=== PATIENT | male | born 1970 | race Caucasian/White ===

== ENCOUNTER 2017-11-23 09:05 | Inpatient (IN) | payer BC, MEDICARE ==
[~2017-11-23] VITALS: Ht 165.1 cm; Wt 55.5 kg
[2017-11-23] MEDS ORDERED: DEXTROSE 50%, 50ML SYRINGE ONE (09:28)
[2017-11-23] MEDS ORDERED: D5%-0.45% NACL 1,000 ML IV SCH (09:30)
[2017-11-23] MEDS ORDERED: PLEASE ENTER HEIGHT AND WEIGHT MC SCH (09:30)
[2017-11-23] MEDS ORDERED: DEXTROSE 50%, 50ML SYRINGE IVPush ONE (09:30)
[2017-11-23 09:58] LABS: BASOPHILS # (AUTO) 0.05 x10^3/uL (0-0.1); BASOPHILS % (AUTO) 0 % (0-1); EOSINOPHILS # (AUTO) 0.04 x10^3/uL (0-0.4); EOSINOPHILS % (AUTO) 0 % (1-7); LYMPHOCYTES # (AUTO) 2.64 x10^3/uL (1-3.4); LYMPHOCYTES % (AUTO) 18 % (22-44); MD NO; MEAN CORPUSCULAR HEMOGLOBIN 33.8 pg (27.5-34.5); MEAN CORPUSCULAR HGB CONC 33.4 g/dL (33.2-36.2); MEAN CORPUSCULAR VOLUME 101.2 fL (81-97); MEAN PLATELET VOLUME 8.2 fL (7.4-10.4); MONOCYTES # (AUTO) 0.69 x10^3/uL (0.2-0.8); MONOCYTES % (AUTO) 5 % (2-9); NEUTROPHILS % (AUTO) 77 % (42-75); PLATELET COUNT 333 x10^3/uL (130-400); RED BLOOD COUNT 3.77 x10^6/uL (4.38-5.82); RED CELL DISTRIBUTION WIDTH 14.5 % (9.4-14.8)
[2017-11-23] MEDS ORDERED: SODIUM CHLORIDE 0.9% 1,000ML IVBOLUS ONE ×2 (10:00→11:30)
[2017-11-23 10:09] LABS: ALANINE AMINOTRANSFERASE 149 U/L (12-78); ALBUMIN 3.3 g/dL (3.4-5.0); ANION GAP 5 mmol/L (5-15); CALCIUM 8.2 mg/dL (8.5-10.1); CHLORIDE 107 mmol/L (98-107); CREATININE 0.54 mg/dL (0.7-1.3)
[2017-11-23 10:12] LABS: ALKALINE PHOSPHATASE 279 U/L (45-117); BILIRUBIN,TOTAL 0.2 mg/dL (0.2-1.0); TOTAL PROTEIN 7.1 g/dL (6.4-8.2)
[2017-11-23] MEDS ORDERED: INSU500V SQ-INSULIN (10:28)
[2017-11-23] MEDS ORDERED: CEFTRIAXONE PMX 1GM/50ML 50 ML IV ONE (11:00)
[2017-11-23] MEDS ORDERED: OMNIPAQUE 350 MG/ML, 100ML BOTTLE ONE (11:11)
[2017-11-23] MEDS ORDERED: CEFTRIAXONE PMX 1GM/50ML 50 ML ONE (11:56)
[2017-11-23 12:07] LABS: MICROSCOPIC AUTO
[2017-11-23 12:08] LABS: CULTURE INDICATED? YES
[2017-11-23 12:19] LABS: AMPHETAMINE SCREEN, URINE Positive (Negative); BARBITURATE SCREEN, URINE Negative (Negative); BENZODIAZEPINE SCREEN, URINE Negative (Negative); CANNABINOID SCREEN, URINE Positive (Negative); COCAINE SCREEN, URINE Negative (Negative); METHADONE SCREEN, URINE Negative (Negative); OPIATE SCREEN, URINE Negative (Negative)
[2017-11-23] MEDS ORDERED: VERAPAMIL 2.5 MG/ML, 2ML ONE (12:29)
[2017-11-23] MEDS ORDERED: VERAPAMIL 2.5 MG/ML, 2ML IVPush ONE (12:30)
[2017-11-23] MEDS ORDERED: DEXTROSE 50%, 50ML SYRINGE IVPush PRN (14:30)
[2017-11-23] MEDS ORDERED: GLUCAGON 1 MG IM PRN (14:30)
[2017-11-23] MEDS ORDERED: DEXTROSE 4 GM TAB.CHEW PO PRN (14:30)
[2017-11-23 14:32] LABS: TROPONIN I < 0.015 ng/mL (0.000-0.045)
[2017-11-23] MEDS ORDERED: INSU100I11 SQ (14:34)
[2017-11-23] MEDS ORDERED: INSU200I4 SQ-INSULIN (14:37)
[2017-11-23 14:49] LABS: FOLATE LEVEL > 20.0 ng/mL (3.1-17.5)
[2017-11-23] MEDS ORDERED: NICOTINE 14MG/24 HR PATCH.TD24 TD ONE (15:00)
[2017-11-23] MEDS ORDERED: POLYETHYLENE GLYCOL 17 GM PACKET PO PRN (15:00)
[2017-11-23] MEDS ORDERED: BISACODYL 10 MG SUPP PR PRN (15:00)
[2017-11-23] MEDS: INSULIN LISPRO 100 UNITS/ML, PEN SQ-INSULIN SCH ×2 (16:00→21:13)
[2017-11-23 16:04] LABS: HEMOGLOBIN A1C 13.6 % (4.2-6.3)
[2017-11-23] MEDS: THIAMINE 100MG TABLET PO SCH (16:19)
[2017-11-23] MEDS: D5%-0.45NACL+KCL 20MEQ 1,000 ML IV SCH ×2 (16:19→22:29)
[2017-11-23] MEDS: ACETAMINOPHEN 325 MG TABLET PO PRN (16:19)
[2017-11-23] MEDS: POTASSIUM CHLORIDE 20 MEQ TAB.ER.PRT PO SCH (16:20)
[2017-11-23] MEDS: FOLIC ACID 1 MG TABLET PO SCH (16:21)
[2017-11-23] MEDS ORDERED: MAGNESIUM SULFATE PMX 2GM/50ML 50 ML IV ONE (16:30)
[2017-11-23 16:42] VITALS: BP 117/78
[2017-11-23] MEDS: VERAPAMIL 2.5 MG/ML, 2ML IVPush PRN ×2 (16:54→19:45)
[2017-11-23 19:18] VITALS: BP 109/82
[2017-11-23 19:43] VITALS: BP 125/90
[2017-11-23] MEDS: ENOXAPARIN 60 MG/0.6 ML SQ SCH (19:45)
[2017-11-23] MEDS: SODIUM CHLORIDE FLUSH 10ML SYR IVF SCH (21:13)
[2017-11-24 00:25] VITALS: BP 110/85
[2017-11-24] MEDS: ACETAMINOPHEN 325 MG TABLET PO PRN ×2 (00:40→20:53)
[2017-11-24 05:44] LABS: BASOPHILS # (AUTO) 0.03 x10^3/uL (0-0.1); BASOPHILS % (AUTO) 0 % (0-1); EOSINOPHILS # (AUTO) 0.05 x10^3/uL (0-0.4); EOSINOPHILS % (AUTO) 1 % (1-7); LYMPHOCYTES # (AUTO) 2.61 x10^3/uL (1-3.4); LYMPHOCYTES % (AUTO) 32 % (22-44); MD NO; MEAN CORPUSCULAR HEMOGLOBIN 34.3 pg (27.5-34.5); MEAN CORPUSCULAR HGB CONC 33.8 g/dL (33.2-36.2); MEAN CORPUSCULAR VOLUME 101.5 fL (81-97); MEAN PLATELET VOLUME 8.8 fL (7.4-10.4); MONOCYTES # (AUTO) 0.44 x10^3/uL (0.2-0.8); MONOCYTES % (AUTO) 5 % (2-9); NEUTROPHILS # (AUTO) 4.93 x10^3/uL (1.8-6.8); NEUTROPHILS % (AUTO) 61 % (42-75); PLATELET COUNT 270 x10^3/uL (130-400); RED BLOOD COUNT 3.45 x10^6/uL (4.38-5.82); RED CELL DISTRIBUTION WIDTH 14.3 % (9.4-14.8)
[2017-11-24 05:55] LABS: CHLORIDE 106 mmol/L (98-107)
[2017-11-24 06:08] LABS: ALANINE AMINOTRANSFERASE 107 U/L (12-78); ALBUMIN 2.5 g/dL (3.4-5.0); ALKALINE PHOSPHATASE 228 U/L (45-117); ANION GAP 7 mmol/L (5-15); BILIRUBIN,TOTAL 0.2 mg/dL (0.2-1.0); CALCIUM 7.8 mg/dL (8.5-10.1); CHOL/HDL RATIO 1.2; CHOLESTEROL, TOTAL 110 mg/dL (140-239); CREATININE 0.53 mg/dL (0.7-1.3); HDL CHOL % 81 % (26-37); HDL CHOLESTEROL (DIRECT) 89 mg/dL (40-60); LDL CHOLESTEROL,CALCULATED 10 mg/dL (54-169); LDL/HDL RATIO 0.1 (0.5-3.0); TOTAL PROTEIN 5.6 g/dL (6.4-8.2); TRIGLYCERIDES 54 mg/dL (50-200); VLDL CHOLESTEROL 11 mg/dL (0-25)
[2017-11-24] MEDS: ENOXAPARIN 60 MG/0.6 ML SQ SCH ×2 (06:28→17:24)
[2017-11-24] MEDS: D5%-0.45NACL+KCL 20MEQ 1,000 ML IV SCH (06:28)
[2017-11-24] MEDS: INSULIN LISPRO 100 UNITS/ML, PEN SQ-INSULIN SCH ×4 (07:33→20:38)
[2017-11-24 07:59] VITALS: BP 130/87
[2017-11-24] MEDS: POTASSIUM CHLORIDE 20 MEQ TAB.ER.PRT PO SCH (08:07)
[2017-11-24] MEDS: SENNA/DOCUSATE TABLET PO SCH (08:08)
[2017-11-24] MEDS: THIAMINE 100MG TABLET PO SCH (08:08)
[2017-11-24] MEDS: SODIUM CHLORIDE FLUSH 10ML SYR IVF SCH ×2 (08:08→20:38)
[2017-11-24] MEDS: FOLIC ACID 1 MG TABLET PO SCH (08:08)
[2017-11-24] MEDS ORDERED: MAGNESIUM SULFATE PMX 2GM/50ML 50 ML IV ONE (09:00)
[2017-11-24] MEDS: CEFTRIAXONE 1,000 MG in SODIUM CHLORIDE 0.9% 50 ML IV SCH (11:42)
[2017-11-24] MEDS ORDERED: CEFTRIAXONE PMX 1GM/50ML 50 ML IV SCH (12:00)
[2017-11-24] MEDS ORDERED: ERGOCALCIFEROL 50,000 UNIT CAPSULE PO SCH (13:00)
[2017-11-24 13:05] VITALS: BP 122/81
[2017-11-24 14:44] VITALS: BP 123/73
[2017-11-24] MEDS: PANCRELIPASE 24,000 CAPSULE.DR PO SCH (17:24)
[2017-11-24 18:49] VITALS: BP 126/81
[2017-11-24] MEDS: INSULIN GLARGINE 100 UNITS/ML, PEN SQ-INSULIN SCH (20:53)
[2017-11-25 01:29] VITALS: BP 130/86
[2017-11-25 04:46] LABS: BASOPHILS # (AUTO) 0.07 x10^3/uL (0-0.1); BASOPHILS % (AUTO) 1 % (0-1); EOSINOPHILS # (AUTO) 0.07 x10^3/uL (0-0.4); EOSINOPHILS % (AUTO) 1 % (1-7); LYMPHOCYTES # (AUTO) 2.76 x10^3/uL (1-3.4); LYMPHOCYTES % (AUTO) 34 % (22-44); MD NO; MEAN CORPUSCULAR HEMOGLOBIN 33.9 pg (27.5-34.5); MEAN CORPUSCULAR HGB CONC 33.2 g/dL (33.2-36.2); MEAN CORPUSCULAR VOLUME 102.1 fL (81-97); MEAN PLATELET VOLUME 8.6 fL (7.4-10.4); MONOCYTES % (AUTO) 6 % (2-9); NEUTROPHILS # (AUTO) 4.79 x10^3/uL (1.8-6.8); NEUTROPHILS % (AUTO) 58 % (42-75); PLATELET COUNT 260 x10^3/uL (130-400); RED BLOOD COUNT 3.78 x10^6/uL (4.38-5.82); RED CELL DISTRIBUTION WIDTH 14.4 % (9.4-14.8)
[2017-11-25 04:57] LABS: ALBUMIN 2.7 g/dL (3.4-5.0); CHLORIDE 109 mmol/L (98-107)
[2017-11-25 05:03] LABS: ALANINE AMINOTRANSFERASE 110 U/L (12-78); ALKALINE PHOSPHATASE 218 U/L (45-117); ANION GAP 6 mmol/L (5-15); BILIRUBIN,TOTAL 0.3 mg/dL (0.2-1.0); CREATININE 0.54 mg/dL (0.7-1.3); TOTAL PROTEIN 5.9 g/dL (6.4-8.2)
[2017-11-25] MEDS: ACETAMINOPHEN 325 MG TABLET PO PRN (05:28)
[2017-11-25] MEDS: ENOXAPARIN 60 MG/0.6 ML SQ SCH ×2 (05:28→16:55)
[2017-11-25 05:56] LABS: CLOSTRIDIUM DIFFICILE ANTIGEN NEGATIVE; CLOSTRIDIUM DIFFICILE TOXIN NEGATIVE (Negative)
[2017-11-25] MEDS: INSULIN LISPRO 100 UNITS/ML, PEN SQ-INSULIN SCH ×4 (07:00→21:00)
[2017-11-25 07:16] VITALS: BP 147/86
[2017-11-25] MEDS: THIAMINE 100MG TABLET PO SCH (08:11)
[2017-11-25] MEDS: SODIUM CHLORIDE FLUSH 10ML SYR IVF SCH ×2 (08:11→21:00)
[2017-11-25] MEDS: PANCRELIPASE 24,000 CAPSULE.DR PO SCH ×3 (08:11→16:55)
[2017-11-25] MEDS: SENNA/DOCUSATE TABLET PO SCH (08:11)
[2017-11-25] MEDS: FOLIC ACID 1 MG TABLET PO SCH (08:11)
[2017-11-25] MEDS: CEFTRIAXONE 1,000 MG in SODIUM CHLORIDE 0.9% 50 ML IV SCH (11:56)
[2017-11-25 14:21] VITALS: BP 151/86
[2017-11-25] MEDS: LORazepam 2 MG/ML, 1ML IVPush PRN (17:10)
[2017-11-25] MEDS ORDERED: NICOTINE 21 MG/24 HR PATCH.TD24 ONE (17:23)
[2017-11-25] MEDS ORDERED: LOPERAMIDE 1 MG/5 ML, 10ML UDC ONE (17:23)
[2017-11-25] MEDS: LOPERAMIDE 1 MG/5 ML, 10ML UDC PO SCH ×2 (17:26→20:57)
[2017-11-25 18:28] VITALS: BP 132/83
[2017-11-25 18:50] VITALS: BP 136/80
[2017-11-25] MEDS: SULFAMETH./TRIMETHOPRIM DS 800MG/160MG TABLET PO SCH (20:57)
[2017-11-25] MEDS: INSULIN GLARGINE 100 UNITS/ML, PEN SQ-INSULIN SCH (20:59)
[2017-11-26 01:18] VITALS: BP 130/82
[2017-11-26] MEDS: LOPERAMIDE 1 MG/5 ML, 10ML UDC PO SCH ×3 (01:30→07:48)
[2017-11-26 04:55] LABS: BASOPHILS # (AUTO) 0.05 x10^3/uL (0-0.1); BASOPHILS % (AUTO) 1 % (0-1); EOSINOPHILS # (AUTO) 0.06 x10^3/uL (0-0.4); EOSINOPHILS % (AUTO) 1 % (1-7); LYMPHOCYTES # (AUTO) 3.36 x10^3/uL (1-3.4); LYMPHOCYTES % (AUTO) 38 % (22-44); MD NO; MEAN CORPUSCULAR HEMOGLOBIN 34.1 pg (27.5-34.5); MEAN CORPUSCULAR HGB CONC 33.5 g/dL (33.2-36.2); MEAN CORPUSCULAR VOLUME 101.9 fL (81-97); MEAN PLATELET VOLUME 8.7 fL (7.4-10.4); MONOCYTES # (AUTO) 0.66 x10^3/uL (0.2-0.8); MONOCYTES % (AUTO) 7 % (2-9); NEUTROPHILS # (AUTO) 4.78 x10^3/uL (1.8-6.8); NEUTROPHILS % (AUTO) 54 % (42-75); PLATELET COUNT 279 x10^3/uL (130-400); RED BLOOD COUNT 3.75 x10^6/uL (4.38-5.82); RED CELL DISTRIBUTION WIDTH 14.5 % (9.4-14.8)
[2017-11-26 05:01] LABS: ALANINE AMINOTRANSFERASE 123 U/L (12-78); ALBUMIN 2.7 g/dL (3.4-5.0); ANION GAP 6 mmol/L (5-15); CALCIUM 7.8 mg/dL (8.5-10.1); CHLORIDE 104 mmol/L (98-107); CREATININE 0.62 mg/dL (0.7-1.3)
[2017-11-26 05:03] LABS: ALKALINE PHOSPHATASE 227 U/L (45-117); BILIRUBIN,TOTAL 0.3 mg/dL (0.2-1.0); TOTAL PROTEIN 5.9 g/dL (6.4-8.2)
[2017-11-26] MEDS: ENOXAPARIN 60 MG/0.6 ML SQ SCH (05:56)
[2017-11-26 07:03] VITALS: BP 125/84
[2017-11-26] MEDS: INSULIN LISPRO 100 UNITS/ML, PEN SQ-INSULIN SCH ×2 (07:45→11:00)
[2017-11-26] MEDS: SENNA/DOCUSATE TABLET PO SCH (07:47)
[2017-11-26] MEDS: SULFAMETH./TRIMETHOPRIM DS 800MG/160MG TABLET PO SCH (07:47)
[2017-11-26] MEDS: FOLIC ACID 1 MG TABLET PO SCH (07:47)
[2017-11-26] MEDS: THIAMINE 100MG TABLET PO SCH (07:47)
[2017-11-26] MEDS: SODIUM CHLORIDE FLUSH 10ML SYR IVF SCH (07:47)
[2017-11-26] MEDS: PANCRELIPASE 24,000 CAPSULE.DR PO SCH ×2 (07:47→12:00)
[2017-11-26] MEDS: LORazepam 2 MG/ML, 1ML IVPush PRN (07:55)
[2017-11-26] MEDS ORDERED: NICOTINE 21 MG/24 HR PATCH.TD24 TD SCH (09:00)
[2017-11-26] MEDS ORDERED: SULF-169 PO (09:13)
[2017-11-26] MEDS ORDERED: INSU100I11 SQ-INSULIN (09:13)
[2017-11-26] MEDS ORDERED: INSU100I13 SQ-INSULIN (09:13)
== END 2017-11-26 13:18 | disposition home or self-care (01) | DRG 871 ==
LOC: ED 12:54 → EDIP 12:55 → ED 13:14 → 5SO 16:04
PROVIDERS: ADMIT Hospitalist; ATTEND Hospitalist
PROC: 0T9B70Z Drainage of Bladder with Drainage Device, Via Natural or Artificial Opening (ICD-10-PCS; principal; 2017-11-23)
DX: A41.9 Sepsis, unspecified organism (principal); E10.641 Type 1 diabetes mellitus with hypoglycemia with coma; D68.59 Other primary thrombophilia; E44.1 Mild protein-calorie malnutrition; K86.1 Other chronic pancreatitis; M87.9 Osteonecrosis, unspecified; N10 Acute pyelonephritis; D53.9 Nutritional anemia, unspecified; E55.9 Vitamin D deficiency, unspecified; E86.0 Dehydration; E87.6 Hypokalemia; F12.90 Cannabis use, unspecified, uncomplicated; F15.10 Other stimulant abuse, uncomplicated; F17.210 Nicotine dependence, cigarettes, uncomplicated; G89.29 Other chronic pain; I48.91 Unspecified atrial fibrillation; K59.00 Constipation, unspecified; K76.0 Fatty (change of) liver, not elsewhere classified; M85.80 Other specified disorders of bone density and structure, unspecified site; B95.61 Methicillin susceptible Staphylococcus aureus infection as the cause of diseases classified elsewhere; N31.9 Neuromuscular dysfunction of bladder, unspecified; R56.9 Unspecified convulsions; R65.20 Severe sepsis without septic shock; Z83.3 Family history of diabetes mellitus; Z91.11 Patient's noncompliance with dietary regimen; Z68.20 Body mass index [BMI] 20.0-20.9, adult
CPT/HCPCS: 36415; 51702; 71045; 74177; 80053; 80061; 80074; 80307; 81001; 82306; 82607; 82746; 82947; 82962; 83036; 83605; 83690; 83735; 83930; 84100; 84443; 84484; 85025; 87040; 87077; 87086; 87186; 87324; 93005; 93306; 95819; 96361; 96365; 96375; 99291; J0696; J1650; Q9967; J1815; J2060; J3475; J3480; J7030

== ENCOUNTER 2017-11-27 22:51 | Inpatient (IN) | payer BC, MEDICARE ==
[~2017-11-27] VITALS: Ht 177.8 cm; Wt 55.0 kg
[~2017-11-27 22:51] MED LIST: INSU100I11 SQ; INSU100I11 SQ-INSULIN; INSU100I13 SQ-INSULIN; INSU200I4 SQ-INSULIN; INSU500V SQ-INSULIN; SULF-169 PO
[2017-11-27] MEDS ORDERED: KETOROLAC 30 MG/1 ML ONE (23:59)
[2017-11-27] MEDS ORDERED: ONDANSETRON 2MG/ML, 2ML ONE (23:59)
[2017-11-28] MEDS ORDERED: ONDANSETRON 2MG/ML, 2ML IVPush ONE
[2017-11-28] MEDS ORDERED: KETOROLAC 30 MG/1 ML IV ONE
[2017-11-28] MEDS ORDERED: SODIUM CHLORIDE 0.9% 1,000ML IVBOLUS ONE
[2017-11-28 00:42] LABS: BASOPHILS # (AUTO) 0.09 x10^3/uL (0-0.1); BASOPHILS % (AUTO) 1 % (0-1); EOSINOPHILS # (AUTO) 0.07 x10^3/uL (0-0.4); EOSINOPHILS % (AUTO) 1 % (1-7); LYMPHOCYTES # (AUTO) 3.26 x10^3/uL (1-3.4); LYMPHOCYTES % (AUTO) 37 % (22-44); MD NO; MEAN CORPUSCULAR HEMOGLOBIN 33.8 pg (27.5-34.5); MEAN CORPUSCULAR HGB CONC 33.6 g/dL (33.2-36.2); MEAN CORPUSCULAR VOLUME 100.6 fL (81-97); MEAN PLATELET VOLUME 8.9 fL (7.4-10.4); MONOCYTES # (AUTO) 0.54 x10^3/uL (0.2-0.8); MONOCYTES % (AUTO) 6 % (2-9); NEUTROPHILS # (AUTO) 4.87 x10^3/uL (1.8-6.8); NEUTROPHILS % (AUTO) 55 % (42-75); PLATELET COUNT 280 x10^3/uL (130-400); RED BLOOD COUNT 3.77 x10^6/uL (4.38-5.82); RED CELL DISTRIBUTION WIDTH 14.1 % (9.4-14.8)
[2017-11-28 00:51] LABS: ALANINE AMINOTRANSFERASE 162 U/L (12-78); ALBUMIN 3.2 g/dL (3.4-5.0); ANION GAP 8 mmol/L (5-15); CALCIUM 8.5 mg/dL (8.5-10.1); CHLORIDE 99 mmol/L (98-107); CREATININE 0.84 mg/dL (0.7-1.3)
[2017-11-28 00:53] LABS: ALKALINE PHOSPHATASE 282 U/L (45-117); BILIRUBIN,TOTAL 0.3 mg/dL (0.2-1.0); TOTAL PROTEIN 6.7 g/dL (6.4-8.2)
[2017-11-28 00:56] LABS: MICROSCOPIC NOT IND
[2017-11-28 01:03] LABS: CULTURE INDICATED? NO
[2017-11-28] MEDS ORDERED: ENOXAPARIN 40 MG/0.4 ML SQ SCH (01:30)
[2017-11-28] MEDS ORDERED: ONDANSETRON 2MG/ML, 2ML IVPush PRN (01:30)
[2017-11-28] MEDS ORDERED: ACETAMINOPHEN 325 MG TABLET PO PRN (01:30)
[2017-11-28 01:35] LABS: PREALBUMIN 16.1 mg/dL (20.0-40.0); THYROID STIMULATING HORMONE 0.829 mIU/L (0.358-3.740)
[2017-11-28] MEDS: SODIUM CHLORIDE 0.9% 1,000 ML IV SCH ×2 (02:18→10:30)
[2017-11-28 02:30] VITALS: BP 138/83
[2017-11-28 06:38] VITALS: BP 152/99
[2017-11-28] MEDS: INSULIN LISPRO 100 UNITS/ML, PEN SQ-INSULIN SCH ×2 (07:00→12:16)
[2017-11-28] MEDS ORDERED: SULFAMETH./TRIMETHOPRIM DS 800MG/160MG TABLET PO SCH (09:00)
[2017-11-28] MEDS ORDERED: POLYETHYLENE GLYCOL 17 GM PACKET PO SCH (09:00)
[2017-11-28 12:49] VITALS: BP 150/94
[2017-11-28] MEDS ORDERED: INSULIN GLARGINE 100 UNITS/ML, PEN SQ-INSULIN SCH (21:00)
== END 2017-11-28 16:04 | disposition home or self-care (01) | DRG 640 ==
LOC: ED 11-28 00:53 → EDIP 11-28 00:56 → SUATTDRO 11-28 01:00 → 3NE 11-28 02:10
PROVIDERS: ADMIT Hospitalist; ATTEND Hospitalist
DX: R62.7 Adult failure to thrive (principal); E43 Unspecified severe protein-calorie malnutrition; K86.1 Other chronic pancreatitis; M87.9 Osteonecrosis, unspecified; N39.0 Urinary tract infection, site not specified; R64 Cachexia; Z68.1 Body mass index [BMI] 19.9 or less, adult; E11.65 Type 2 diabetes mellitus with hyperglycemia; E11.49 Type 2 diabetes mellitus with other diabetic neurological complication; F15.90 Other stimulant use, unspecified, uncomplicated; I48.91 Unspecified atrial fibrillation; K76.0 Fatty (change of) liver, not elsewhere classified; N31.9 Neuromuscular dysfunction of bladder, unspecified; R56.9 Unspecified convulsions; Z79.4 Long term (current) use of insulin; Z91.11 Patient's noncompliance with dietary regimen; Z91.19 Patient's noncompliance with other medical treatment and regimen
CPT/HCPCS: 36415; 80053; 81003; 82947; 82962; 83930; 84134; 84443; 85025; 93005; 96361; 96374; 96375; J1885; J2405; J1815; J7030

== ENCOUNTER 2018-01-25 15:11 | Inpatient (IN) | payer BC, MEDICARE ==
[~2018-01-25] VITALS: Ht 175.3 cm; Wt 52.0 kg
[2018-01-25 15:40] LABS: MEAN CORPUSCULAR HEMOGLOBIN 33.2 pg (27.5-34.5); MEAN CORPUSCULAR HGB CONC 34.2 g/dL (33.2-36.2); MEAN PLATELET VOLUME 9.4 fL (7.4-10.4); PLATELET COUNT 268 x10^3/uL (130-400); RED BLOOD COUNT 3.57 x10^6/uL (4.38-5.82); RED CELL DISTRIBUTION WIDTH 13.4 % (9.4-14.8)
[2018-01-25 15:48] LABS: MD YES
[2018-01-25 15:55] LABS: ALBUMIN 2.9 g/dL (3.4-5.0); ANION GAP 11 mmol/L (5-15); CALCIUM 8.9 mg/dL (8.5-10.1); CHLORIDE 88 mmol/L (98-107)
[2018-01-25 15:57] LABS: CREATININE 2.93 mg/dL (0.7-1.3)
[2018-01-25] MEDS ORDERED: SODIUM CHLORIDE 0.9% 1,000ML IVBOLUS ONE ×2 (16:00→17:00)
[2018-01-25] MEDS ORDERED: SODIUM CHLORIDE FLUSH 10ML SYR IVF ONE (16:00)
[2018-01-25 16:24] LABS: BANDS%(MANUAL) 3 % (0-7); LYMPHS% (MANUAL) 6 % (22-44); MONOS% (MANUAL) 6 % (2-9); SEG#(MANUAL) 28.31 x10^3/uL (1.8-6.8); SEGS% (MANUAL) 85 % (42-75)
[2018-01-25 16:26] LABS: <PLATELET ESTIMATE> ADEQUATE; <PLT MORPHOLOGY> NORMAL PLT MORPH; <RBC MORPHOLOGY> NORMAL; TOXIC GRAN 1+
[2018-01-25 16:57] LABS: MICROSCOPIC INDICATED
[2018-01-25 16:58] LABS: CULTURE INDICATED? YES
[2018-01-25] MEDS ORDERED: CEFTRIAXONE 1,000 MG in SODIUM CHLORIDE 0.9% 50 ML IV ONE (17:00)
[2018-01-25] MEDS ORDERED: CEFTRIAXONE PMX 1GM/50ML 50 ML ONE (17:10)
[2018-01-25 17:17] LABS: ACETONE, SERUM Negative (Negative)
[2018-01-25] MEDS ORDERED: ONDANSETRON ODT 4 MG ONE (18:15)
[2018-01-25] MEDS ORDERED: FENTANYL PF 100 MCG/2ML ONE (18:15)
[2018-01-25] MEDS: FENTANYL PF 100 MCG/2ML IVPush PRN ×2 (18:20→19:09)
[2018-01-25] MEDS ORDERED: ONDANSETRON ODT 4 MG PO ONE (18:30)
[2018-01-25] MEDS ORDERED: POLYETHYLENE GLYCOL 17 GM PACKET PO PRN (19:30)
[2018-01-25] MEDS ORDERED: CEFTRIAXONE 1,000 MG in SODIUM CHLORIDE 0.9% 50 ML IV SCH (19:30)
[2018-01-25] MEDS ORDERED: ONDANSETRON ODT 4 MG PO PRN (19:30)
[2018-01-25] MEDS ORDERED: BISACODYL 10 MG SUPP PR PRN (19:30)
[2018-01-25 20:10] LABS: HEMOGLOBIN A1C 14.5 % (4.2-6.3)
[2018-01-25] MEDS: NICOTINE 21 MG/24 HR PATCH.TD24 TD SCH (20:20)
[2018-01-25] MEDS: MULTIVITAMINS/MINERALS TABLET PO SCH (20:21)
[2018-01-25] MEDS: OXYcodone IR 5MG TABLET PO PRN (20:21)
[2018-01-25] MEDS: SODIUM CHLORIDE 0.9% 1,000 ML IV SCH (20:21)
[2018-01-25] MEDS: HEPARIN 5,000 UNITS/ML, 1ML SQ SCH (20:21)
[2018-01-25] MEDS ORDERED: INSULIN LISPRO 100 UNITS/ML, PEN SQ-INSULIN SCH (21:00)
[2018-01-25] MEDS: INSULIN GLARGINE 100 UNITS/ML, PEN SQ-INSULIN SCH (22:18)
[2018-01-25] MEDS: INSULIN LISPRO 100 UNITS/ML, PEN SQ-INSULIN SCH (23:06)
[2018-01-26] MEDS: OXYcodone IR 5MG TABLET PO PRN ×5 (00:37→19:40)
[2018-01-26 01:06] VITALS: BP 132/67
[2018-01-26 02:18] LABS: CREATININE,URINE RANDOM 24.7 mg/dL
[2018-01-26 03:31] LABS: MEAN CORPUSCULAR HEMOGLOBIN 33.1 pg (27.5-34.5); MEAN CORPUSCULAR HGB CONC 34.4 g/dL (33.2-36.2); MEAN PLATELET VOLUME 9.2 fL (7.4-10.4); PLATELET COUNT 220 x10^3/uL (130-400); RED BLOOD COUNT 3.25 x10^6/uL (4.38-5.82); RED CELL DISTRIBUTION WIDTH 13.4 % (9.4-14.8)
[2018-01-26 03:41] LABS: ALBUMIN 2.3 g/dL (3.4-5.0); ANION GAP 10 mmol/L (5-15); CALCIUM 8.1 mg/dL (8.5-10.1); CHLORIDE 103 mmol/L (98-107)
[2018-01-26 03:46] LABS: ALANINE AMINOTRANSFERASE 21 U/L (12-78); ALKALINE PHOSPHATASE 211 U/L (45-117); BILIRUBIN,TOTAL 0.2 mg/dL (0.2-1.0); CREATININE 1.68 mg/dL (0.7-1.3); TOTAL PROTEIN 6.5 g/dL (6.4-8.2)
[2018-01-26 03:54] LABS: MD YES
[2018-01-26 04:07] LABS: ANISOCYTOSIS 1+; BAND#(MANUAL) 2.04 x10^3/uL; BANDS%(MANUAL) 7 % (0-7); LYMPH#(MANUAL) 1.17 x10^3/uL (1-3.4); LYMPHS% (MANUAL) 4 % (22-44); METAMYELOCYTES# (MANUAL) 0.29 x10^3/uL (0-0); METAMYELOCYTES% (MANUAL) 1 % (0-1); MONOS#(MANUAL) 0.29 x10^3/uL (0.3-2.7); MONOS% (MANUAL) 1 % (2-9); MYELOCYTES# (MANUAL) 0.29 x10^3/uL (0-0); MYELOCYTES% (MANUAL) 1 % (0-0); SEG#(MANUAL) 25.11 x10^3/uL (1.8-6.8); SEGS% (MANUAL) 86 % (42-75); TOXIC GRAN 1+
[2018-01-26 04:08] LABS: <PLATELET ESTIMATE> ADEQUATE; <PLT MORPHOLOGY> NORMAL PLT MORPH
[2018-01-26] MEDS: HEPARIN 5,000 UNITS/ML, 1ML SQ SCH ×3 (04:28→19:40)
[2018-01-26] MEDS: SODIUM CHLORIDE 0.9% 1,000 ML IV SCH ×4 (04:29→19:42)
[2018-01-26] MEDS: INSULIN LISPRO 100 UNITS/ML, PEN SQ-INSULIN SCH ×4 (07:00→20:58)
[2018-01-26 07:19] VITALS: BP 113/72
[2018-01-26] MEDS: MEGESTROL ACETATE 400 MG/10 ML ML PO SCH (08:41)
[2018-01-26] MEDS: SENNA/DOCUSATE TABLET PO SCH (08:41)
[2018-01-26] MEDS: MULTIVITAMINS/MINERALS TABLET PO SCH ×2 (08:42→19:40)
[2018-01-26 14:30] VITALS: BP 98/59
[2018-01-26] MEDS ORDERED: PHARMACY MAY ADJ FOR RENAL FX MC PRN (18:00)
[2018-01-26] MEDS ORDERED: LINEZOLID PMX 600MG/300ML 300 ML IV SCH (18:00)
[2018-01-26] MEDS ORDERED: VANCOMYCIN PER PHARMACY MC PRN (18:00)
[2018-01-26] MEDS: NICOTINE 21 MG/24 HR PATCH.TD24 TD SCH (18:47)
[2018-01-26 19:00] VITALS: BP 119/85
[2018-01-26] MEDS ORDERED: PHARMACOKINETIC MONITORING MC PRN (19:30)
[2018-01-26] MEDS ORDERED: PHARMACOKINETIC CONSULTATION MC ONE (19:30)
[2018-01-26] MEDS: PIPERACILLIN/TAZO/PMX 3.375GM 50 ML IV SCH (19:40)
[2018-01-26] MEDS: INSULIN GLARGINE 100 UNITS/ML, PEN SQ-INSULIN SCH (20:59)
[2018-01-26] MEDS: VANCOMYCIN PMX 1GM/200ML 200 ML IV SCH (21:46)
[2018-01-27] MEDS: OXYcodone IR 5MG TABLET PO PRN ×5 (00:02→22:23)
[2018-01-27] MEDS: PIPERACILLIN/TAZO/PMX 3.375GM 50 ML IV SCH ×4 (00:07→17:52)
[2018-01-27 00:24] VITALS: BP 130/80
[2018-01-27] MEDS: ACETAMINOPHEN 325 MG TABLET PO PRN (01:40)
[2018-01-27 04:58] LABS: CREATININE 1.15 mg/dL (0.7-1.3)
[2018-01-27] MEDS: SODIUM CHLORIDE 0.9% 1,000 ML IV SCH ×2 (05:08→13:35)
[2018-01-27] MEDS: HEPARIN 5,000 UNITS/ML, 1ML SQ SCH ×3 (05:08→19:57)
[2018-01-27] MEDS: INSULIN LISPRO 100 UNITS/ML, PEN SQ-INSULIN SCH ×4 (07:00→20:17)
[2018-01-27] MEDS: MULTIVITAMINS/MINERALS TABLET PO SCH ×2 (07:31→20:17)
[2018-01-27] MEDS: MEGESTROL ACETATE 400 MG/10 ML ML PO SCH (07:31)
[2018-01-27] MEDS: SENNA/DOCUSATE TABLET PO SCH (07:32)
[2018-01-27 07:51] VITALS: BP 109/74
[2018-01-27 08:13] LABS: MEAN CORPUSCULAR HEMOGLOBIN 31.9 pg (27.5-34.5); MEAN CORPUSCULAR HGB CONC 33.3 g/dL (33.2-36.2); PLATELET COUNT 196 x10^3/uL (130-400); RED BLOOD COUNT 2.93 x10^6/uL (4.38-5.82); RED CELL DISTRIBUTION WIDTH 13.2 % (9.4-14.8)
[2018-01-27 08:34] LABS: BASOPHILS % (AUTO) 0 % (0-1); EOSINOPHILS # (AUTO) 0.21 x10^3/uL (0-0.4); EOSINOPHILS % (AUTO) 1 % (1-7); LYMPHOCYTES % (AUTO) 11 % (22-44); MD SCAN; MONOCYTES # (AUTO) 0.66 x10^3/uL (0.2-0.8); MONOCYTES % (AUTO) 4 % (2-9); NEUTROPHILS # (AUTO) 13.59 x10^3/uL (1.8-6.8); NEUTROPHILS % (AUTO) 84 % (42-75)
[2018-01-27 08:38] LABS: ANION GAP 11 mmol/L (5-15); CALCIUM 7.5 mg/dL (8.5-10.1); CHLORIDE 106 mmol/L (98-107)
[2018-01-27] MEDS ORDERED: POTASSIUM CHLORIDE 20 MEQ TAB.ER.PRT PO ONE (10:00)
[2018-01-27] MEDS ORDERED: MAGNESIUM SULFATE PMX 2GM/50ML 50 ML IV ONE (11:00)
[2018-01-27 13:55] VITALS: BP 117/73
[2018-01-27 19:31] VITALS: BP 114/74
[2018-01-27] MEDS: NICOTINE 21 MG/24 HR PATCH.TD24 TD SCH (19:57)
[2018-01-27] MEDS: INSULIN GLARGINE 100 UNITS/ML, PEN SQ-INSULIN SCH (20:17)
[2018-01-27] MEDS: VANCOMYCIN PMX 1GM/200ML 200 ML IV SCH (22:25)
[2018-01-28] MEDS: PIPERACILLIN/TAZO/PMX 3.375GM 50 ML IV SCH ×4 (00:12→18:27)
[2018-01-28 02:00] VITALS: BP 128/84
[2018-01-28] MEDS: OXYcodone IR 5MG TABLET PO PRN ×4 (02:51→20:04)
[2018-01-28] MEDS: SODIUM CHLORIDE 0.9% 1,000 ML IV SCH ×3 (02:51→20:05)
[2018-01-28] MEDS ORDERED: GABAPENTIN 100 MG CAPSULE PO ONE (03:00)
[2018-01-28] MEDS: HEPARIN 5,000 UNITS/ML, 1ML SQ SCH ×3 (03:12→20:05)
[2018-01-28 05:24] LABS: MEAN CORPUSCULAR HEMOGLOBIN 32.8 pg (27.5-34.5); MEAN CORPUSCULAR VOLUME 96.4 fL (81-97); RED BLOOD COUNT 3.14 x10^6/uL (4.38-5.82)
[2018-01-28 05:25] LABS: MEAN PLATELET VOLUME 10.4 fL (7.4-10.4); PLATELET COUNT 228 x10^3/uL (130-400); RED CELL DISTRIBUTION WIDTH 13.3 % (9.4-14.8)
[2018-01-28 05:26] LABS: ANION GAP 5 mmol/L (5-15); CALCIUM 7.4 mg/dL (8.5-10.1); CHLORIDE 111 mmol/L (98-107)
[2018-01-28 05:29] LABS: CREATININE 1.13 mg/dL (0.7-1.3)
[2018-01-28 06:11] LABS: BASOPHILS # (AUTO) 0.04 x10^3/uL (0-0.1); BASOPHILS % (AUTO) 0 % (0-1); EOSINOPHILS # (AUTO) 0.07 x10^3/uL (0-0.4); EOSINOPHILS % (AUTO) 1 % (1-7); LYMPHOCYTES # (AUTO) 1.81 x10^3/uL (1-3.4); LYMPHOCYTES % (AUTO) 14 % (22-44); MD SCAN; MONOCYTES % (AUTO) 4 % (2-9); NEUTROPHILS # (AUTO) 10.58 x10^3/uL (1.8-6.8); NEUTROPHILS % (AUTO) 81 % (42-75)
[2018-01-28 06:49] VITALS: BP 128/81
[2018-01-28] MEDS: MULTIVITAMINS/MINERALS TABLET PO SCH ×2 (07:57→20:05)
[2018-01-28] MEDS: SENNA/DOCUSATE TABLET PO SCH (07:58)
[2018-01-28] MEDS: MEGESTROL ACETATE 400 MG/10 ML ML PO SCH (07:58)
[2018-01-28] MEDS ORDERED: MAGNESIUM SULFATE PMX 2GM/50ML 50 ML IV ONE (08:00)
[2018-01-28] MEDS ORDERED: POTASSIUM PHOSPHATE 44 MEQ in SODIUM CHLORIDE 0.9% 500 ML IV ONE (08:00)
[2018-01-28] MEDS: INSULIN LISPRO 100 UNITS/ML, PEN SQ-INSULIN SCH ×4 (08:04→20:31)
[2018-01-28] MEDS ORDERED: GABA300C10 PO (08:51)
[2018-01-28] MEDS: GABAPENTIN 100 MG CAPSULE PO SCH ×3 (10:20→20:05)
[2018-01-28] MEDS: INSULIN GLARGINE 100 UNITS/ML, PEN SQ-INSULIN SCH ×2 (10:23→20:31)
[2018-01-28 13:03] VITALS: BP 112/72
[2018-01-28] MEDS: NICOTINE 21 MG/24 HR PATCH.TD24 TD SCH (15:49)
[2018-01-28 19:59] VITALS: BP 127/83
[2018-01-28] MEDS: ACETAMINOPHEN 325 MG TABLET PO PRN (21:45)
[2018-01-28] MEDS: VANCOMYCIN PMX 1GM/200ML 200 ML IV SCH (21:50)
[2018-01-29] MEDS: PIPERACILLIN/TAZO/PMX 3.375GM 50 ML IV SCH ×3 (00:15→11:59)
[2018-01-29] MEDS: OXYcodone IR 5MG TABLET PO PRN ×5 (01:15→20:01)
[2018-01-29 01:20] VITALS: BP 145/89
[2018-01-29] MEDS: HEPARIN 5,000 UNITS/ML, 1ML SQ SCH ×3 (03:28→20:02)
[2018-01-29 06:04] LABS: BASOPHILS # (AUTO) 0.04 x10^3/uL (0-0.1); BASOPHILS % (AUTO) 0 % (0-1); EOSINOPHILS # (AUTO) 0.11 x10^3/uL (0-0.4); EOSINOPHILS % (AUTO) 1 % (1-7); LYMPHOCYTES # (AUTO) 2.26 x10^3/uL (1-3.4); LYMPHOCYTES % (AUTO) 23 % (22-44); MD NO; MEAN CORPUSCULAR HEMOGLOBIN 32.9 pg (27.5-34.5); MEAN CORPUSCULAR HGB CONC 33.9 g/dL (33.2-36.2); MEAN CORPUSCULAR VOLUME 97.2 fL (81-97); MEAN PLATELET VOLUME 9.3 fL (7.4-10.4); MONOCYTES # (AUTO) 0.73 x10^3/uL (0.2-0.8); MONOCYTES % (AUTO) 8 % (2-9); NEUTROPHILS # (AUTO) 6.59 x10^3/uL (1.8-6.8); NEUTROPHILS % (AUTO) 68 % (42-75); PLATELET COUNT 262 x10^3/uL (130-400); RED BLOOD COUNT 3.11 x10^6/uL (4.38-5.82); RED CELL DISTRIBUTION WIDTH 13.7 % (9.4-14.8)
[2018-01-29 06:08] LABS: ANION GAP 6 mmol/L (5-15); CALCIUM 7.1 mg/dL (8.5-10.1); CHLORIDE 108 mmol/L (98-107)
[2018-01-29 06:10] LABS: CREATININE 1.05 mg/dL (0.7-1.3)
[2018-01-29 07:37] VITALS: BP 137/81
[2018-01-29] MEDS: MEGESTROL ACETATE 400 MG/10 ML ML PO SCH (07:45)
[2018-01-29] MEDS: INSULIN LISPRO 100 UNITS/ML, PEN SQ-INSULIN SCH ×4 (07:45→21:45)
[2018-01-29] MEDS: GABAPENTIN 100 MG CAPSULE PO SCH ×3 (07:46→20:02)
[2018-01-29] MEDS: MULTIVITAMINS/MINERALS TABLET PO SCH ×2 (07:46→20:01)
[2018-01-29] MEDS: SENNA/DOCUSATE TABLET PO SCH (07:53)
[2018-01-29] MEDS ORDERED: MAGNESIUM SULFATE PMX 2GM/50ML 50 ML IV ONE (08:00)
[2018-01-29] MEDS ORDERED: INSULIN GLARGINE 100 UNITS/ML, PEN SQ-INSULIN SCH ×2 (09:00→21:00)
[2018-01-29 13:52] VITALS: BP 135/86
[2018-01-29] MEDS: NICOTINE 21 MG/24 HR PATCH.TD24 TD SCH (16:30)
[2018-01-29 19:24] VITALS: BP 158/86
[2018-01-29] MEDS ORDERED: LORazepam 2 MG/ML, 1ML IVPush ONE (21:00)
[2018-01-29] MEDS ORDERED: LORazepam 2 MG/ML, 1ML ONE (21:02)
[2018-01-29] MEDS: VANCOMYCIN PMX 1GM/200ML 200 ML IV SCH (22:33)
[2018-01-30] MEDS: OXYcodone IR 5MG TABLET PO PRN ×6 (01:02→23:54)
[2018-01-30 01:10] VITALS: BP 136/88
[2018-01-30] MEDS: HEPARIN 5,000 UNITS/ML, 1ML SQ SCH ×3 (04:00→19:53)
[2018-01-30 07:43] VITALS: BP 150/93
[2018-01-30] MEDS: INSULIN LISPRO 100 UNITS/ML, PEN SQ-INSULIN SCH ×4 (07:54→19:53)
[2018-01-30] MEDS: SENNA/DOCUSATE TABLET PO SCH (07:56)
[2018-01-30] MEDS: MULTIVITAMINS/MINERALS TABLET PO SCH ×2 (07:56→19:53)
[2018-01-30] MEDS: GABAPENTIN 100 MG CAPSULE PO SCH ×3 (07:56→19:53)
[2018-01-30] MEDS: INSULIN GLARGINE 100 UNITS/ML, PEN SQ-INSULIN SCH ×2 (08:02→19:54)
[2018-01-30 14:36] VITALS: BP 118/81
[2018-01-30] MEDS: NICOTINE 21 MG/24 HR PATCH.TD24 TD SCH (15:16)
[2018-01-30 20:10] VITALS: BP 110/71
[2018-01-30] MEDS: VANCOMYCIN PMX 1GM/200ML 200 ML IV SCH (22:27)
[2018-01-31 00:27] VITALS: BP 130/85
[2018-01-31] MEDS: HEPARIN 5,000 UNITS/ML, 1ML SQ SCH ×3 (04:00→19:31)
[2018-01-31] MEDS: OXYcodone IR 5MG TABLET PO PRN ×5 (04:29→21:34)
[2018-01-31 07:15] VITALS: BP 126/78
[2018-01-31] MEDS: INSULIN LISPRO 100 UNITS/ML, PEN SQ-INSULIN SCH ×4 (08:11→19:53)
[2018-01-31] MEDS: INSULIN GLARGINE 100 UNITS/ML, PEN SQ-INSULIN SCH ×2 (08:12→19:53)
[2018-01-31] MEDS: SENNA/DOCUSATE TABLET PO SCH (08:12)
[2018-01-31] MEDS: GABAPENTIN 100 MG CAPSULE PO SCH ×3 (08:19→19:31)
[2018-01-31] MEDS: MULTIVITAMINS/MINERALS TABLET PO SCH ×2 (08:19→19:31)
[2018-01-31 12:08] LABS: ALBUMIN 2.1 g/dL (3.4-5.0); CHLORIDE 100 mmol/L (98-107)
[2018-01-31 12:16] LABS: ALANINE AMINOTRANSFERASE 18 U/L (12-78); ALKALINE PHOSPHATASE 323 U/L (45-117); ANION GAP 6 mmol/L (5-15); BILIRUBIN,TOTAL 0.3 mg/dL (0.2-1.0); CREATININE 1.09 mg/dL (0.7-1.3); TOTAL PROTEIN 6.7 g/dL (6.4-8.2)
[2018-01-31 13:29] VITALS: BP 109/73
[2018-01-31] MEDS: LORazepam 0.5MG TABLET PO PRN ×2 (16:55→21:34)
[2018-01-31] MEDS: NICOTINE 21 MG/24 HR PATCH.TD24 TD SCH (16:55)
[2018-01-31 19:51] VITALS: BP 107/74
[2018-01-31] MEDS: VANCOMYCIN PMX 1GM/200ML 200 ML IV SCH (22:44)
[2018-02-01] MEDS: OXYcodone IR 5MG TABLET PO PRN ×5 (02:43→23:44)
[2018-02-01 02:46] VITALS: BP 115/72
[2018-02-01] MEDS: HEPARIN 5,000 UNITS/ML, 1ML SQ SCH ×3 (04:00→20:00)
[2018-02-01 04:19] LABS: CLOSTRIDIUM DIFFICILE ANTIGEN NEGATIVE; CLOSTRIDIUM DIFFICILE TOXIN NEGATIVE (Negative)
[2018-02-01] MEDS: LORazepam 0.5MG TABLET PO PRN ×3 (06:07→20:25)
[2018-02-01 07:08] VITALS: BP_SYST 108; BP_SYST 130; BP_DIAS 74; BP_DIAS 77
[2018-02-01] MEDS: INSULIN LISPRO 100 UNITS/ML, PEN SQ-INSULIN SCH ×4 (08:26→21:00)
[2018-02-01] MEDS: SENNA/DOCUSATE TABLET PO SCH (08:32)
[2018-02-01] MEDS: MULTIVITAMINS/MINERALS TABLET PO SCH ×2 (08:49→20:25)
[2018-02-01] MEDS: GABAPENTIN 100 MG CAPSULE PO SCH (08:49)
[2018-02-01] MEDS: INSULIN GLARGINE 100 UNITS/ML, PEN SQ-INSULIN SCH ×2 (08:49→21:00)
[2018-02-01] MEDS ORDERED: [UNRECOGNIZED DRUG - REMARK] XX PRN (11:00)
[2018-02-01 12:55] VITALS: BP 116/79
[2018-02-01] MEDS ORDERED: LIDODERM 5% PATCH TD SCH (15:00)
[2018-02-01] MEDS: NICOTINE 21 MG/24 HR PATCH.TD24 TD SCH (17:46)
[2018-02-01] MEDS: GABAPENTIN 400 MG CAPSULE PO SCH ×2 (17:47→20:25)
[2018-02-01 18:51] VITALS: BP 117/78
[2018-02-01] MEDS: ACETAMINOPHEN 325 MG TABLET PO PRN (20:25)
[2018-02-01] MEDS: VANCOMYCIN PMX 1GM/200ML 200 ML IV SCH (23:44)
[2018-02-02 02:48] VITALS: BP 120/77
[2018-02-02] MEDS: HEPARIN 5,000 UNITS/ML, 1ML SQ SCH (04:00)
[2018-02-02] MEDS: OXYcodone IR 5MG TABLET PO PRN ×2 (06:04→11:38)
[2018-02-02] MEDS: LORazepam 0.5MG TABLET PO PRN (06:18)
[2018-02-02 07:22] VITALS: BP 120/80
[2018-02-02] MEDS: INSULIN LISPRO 100 UNITS/ML, PEN SQ-INSULIN SCH ×2 (08:38→11:38)
[2018-02-02] MEDS: INSULIN GLARGINE 100 UNITS/ML, PEN SQ-INSULIN SCH (08:39)
[2018-02-02] MEDS: GABAPENTIN 400 MG CAPSULE PO SCH (08:40)
[2018-02-02] MEDS: MULTIVITAMINS/MINERALS TABLET PO SCH (08:40)
[2018-02-02] MEDS: SENNA/DOCUSATE TABLET PO SCH (08:40)
[2018-02-02] MEDS: ACETAMINOPHEN 325 MG TABLET PO PRN (11:38)
[2018-02-02] MEDS ORDERED: GABA-827 PO (12:41)
[2018-02-02] MEDS ORDERED: MULT-484 PO (12:41)
[2018-02-02] MEDS ORDERED: INSU100I13 SQ-INSULIN (12:41)
== END 2018-02-02 13:09 | DRG 698 ==
LOC: ED 17:34 → EDIP 18:43 → 3NE 20:02
PROVIDERS: ADMIT Internal Medicine; ATTEND Internal Medicine
PROC: 0T9B70Z Drainage of Bladder with Drainage Device, Via Natural or Artificial Opening (ICD-10-PCS; principal; 2018-01-25)
PROC: 02HV33Z Insertion of Infusion Device into Superior Vena Cava, Percutaneous Approach (ICD-10-PCS; 2018-01-25)
PROC: B548ZZA Ultrasonography of Superior Vena Cava, Guidance (ICD-10-PCS; 2018-01-25)
DX: T83.518A Infection and inflammatory reaction due to other urinary catheter, initial encounter (principal); A41.9 Sepsis, unspecified organism; N17.0 Acute kidney failure with tubular necrosis; E43 Unspecified severe protein-calorie malnutrition; J18.9 Pneumonia, unspecified organism; R65.20 Severe sepsis without septic shock; N10 Acute pyelonephritis; E87.1 Hypo-osmolality and hyponatremia; K86.1 Other chronic pancreatitis; Z68.1 Body mass index [BMI] 19.9 or less, adult; B95.2 Enterococcus as the cause of diseases classified elsewhere; B95.7 Other staphylococcus as the cause of diseases classified elsewhere; E11.40 Type 2 diabetes mellitus with diabetic neuropathy, unspecified; E11.65 Type 2 diabetes mellitus with hyperglycemia; F10.20 Alcohol dependence, uncomplicated; F12.90 Cannabis use, unspecified, uncomplicated; F17.210 Nicotine dependence, cigarettes, uncomplicated; F32.9 Major depressive disorder, single episode, unspecified; G89.29 Other chronic pain; I48.0 Paroxysmal atrial fibrillation; N30.90 Cystitis, unspecified without hematuria; N31.9 Neuromuscular dysfunction of bladder, unspecified; N40.1 Benign prostatic hyperplasia with lower urinary tract symptoms; R33.8 Other retention of urine; R62.7 Adult failure to thrive; Z66 Do not resuscitate; Z79.2 Long term (current) use of antibiotics; Z79.4 Long term (current) use of insulin; Z81.8 Family history of other mental and behavioral disorders; Z83.3 Family history of diabetes mellitus; Z91.19 Patient's noncompliance with other medical treatment and regimen; D63.8 Anemia in other chronic diseases classified elsewhere; F15.10 Other stimulant abuse, uncomplicated; B95.61 Methicillin susceptible Staphylococcus aureus infection as the cause of diseases classified elsewhere; Z16.11 Resistance to penicillins; Y84.6 Urinary catheterization as the cause of abnormal reaction of the patient, or of later complication, without mention of misadventure at the time of the procedure; Y92.89 Other specified places as the place of occurrence of the external cause
CPT/HCPCS: 36415; 36569; 51702; 71045; 76937; 77001; 80048; 80053; 80202; 81001; 82010; 82040; 82436; 82570; 82728; 82800; 82947; 82962; 83036; 83540; 83550; 83605; 83735; 84100; 84133; 84145; 84295; 84300; 85025; 87040; 87077; 87086; 87186; 87324; 93005; 93306; 96365; 96375; 99291; G0378; J0696; J1644; J2543; J3010; J3370; Q0162; C1751; J1815; J2060; J3475; J7030; J7040

== ENCOUNTER 2018-02-15 23:02 | Inpatient (IN) | payer BC, MEDICARE ==
[~2018-02-15] VITALS: Ht 176.5 cm; Wt 47.5 kg
[~2018-02-15 23:02] MED LIST changes: +GABA-827 PO; +GABA300C10 PO; +MULT-484 PO
[2018-02-15] MEDS ORDERED: SODIUM CHLORIDE 0.9% 1,000ML IVBOLUS ONE (23:30)
[2018-02-16 00:11] LABS: BASOPHILS # (AUTO) 0.04 x10^3/uL (0-0.1); BASOPHILS % (AUTO) 0 % (0-1); EOSINOPHILS # (AUTO) 0.09 x10^3/uL (0-0.4); EOSINOPHILS % (AUTO) 1 % (1-7); LYMPHOCYTES # (AUTO) 3.43 x10^3/uL (1-3.4); LYMPHOCYTES % (AUTO) 24 % (22-44); MD NO; MEAN CORPUSCULAR HEMOGLOBIN 31.9 pg (27.5-34.5); MEAN CORPUSCULAR HGB CONC 34.2 g/dL (33.2-36.2); MEAN CORPUSCULAR VOLUME 93.3 fL (81-97); MEAN PLATELET VOLUME 8.4 fL (7.4-10.4); MONOCYTES # (AUTO) 0.98 x10^3/uL (0.2-0.8); MONOCYTES % (AUTO) 7 % (2-9); NEUTROPHILS # (AUTO) 9.81 x10^3/uL (1.8-6.8); NEUTROPHILS % (AUTO) 68 % (42-75); PLATELET COUNT 505 x10^3/uL (130-400); RED BLOOD COUNT 3.44 x10^6/uL (4.38-5.82); RED CELL DISTRIBUTION WIDTH 13.5 % (9.4-14.8)
[2018-02-16 00:20] LABS: ALANINE AMINOTRANSFERASE 21 U/L (12-78); ALBUMIN 3.8 g/dL (3.4-5.0); ANION GAP 13 mmol/L (5-15); CALCIUM 9.5 mg/dL (8.5-10.1); CHLORIDE 96 mmol/L (98-107); CREATININE 1.83 mg/dL (0.7-1.3)
[2018-02-16 00:24] LABS: ALKALINE PHOSPHATASE 187 U/L (45-117); BILIRUBIN,TOTAL 0.3 mg/dL (0.2-1.0); TOTAL PROTEIN 9.6 g/dL (6.4-8.2); TROPONIN I < 0.015 ng/mL (0.000-0.045)
[2018-02-16] MEDS ORDERED: DEXTROSE 50%, 50ML SYRINGE IVPush ONE (00:30)
[2018-02-16] MEDS ORDERED: DEXTROSE 50%, 50ML SYRINGE ONE (01:28)
[2018-02-16] MEDS ORDERED: SODIUM CHLORIDE 0.9% 1,000 ML IV ONE (02:02)
[2018-02-16] MEDS ORDERED: MORPHINE SULFATE 4 MG/ML, 1ML ONE (02:10)
[2018-02-16] MEDS ORDERED: SODIUM CHLORIDE 0.9% 1,000 ML IV SCH (02:14)
[2018-02-16 02:20] LABS: CLOSTRIDIUM DIFFICILE ANTIGEN NEGATIVE; CLOSTRIDIUM DIFFICILE TOXIN NEGATIVE (Negative)
[2018-02-16] MEDS ORDERED: DEXTROSE 50%, 50ML SYRINGE IVPush PRN (02:30)
[2018-02-16] MEDS ORDERED: GLUCAGON 1 MG IM PRN (02:30)
[2018-02-16] MEDS ORDERED: TRAZODONE 50MG TABLET PO PRN (02:30)
[2018-02-16] MEDS ORDERED: ONDANSETRON ODT 4 MG PO PRN (02:30)
[2018-02-16] MEDS ORDERED: ONDANSETRON 2MG/ML, 2ML IVPush PRN (02:30)
[2018-02-16] MEDS ORDERED: MORPHINE SULFATE 4 MG/ML, 1ML IVPush PRN (02:30)
[2018-02-16] MEDS ORDERED: DEXTROSE 4 GM TAB.CHEW PO PRN (02:30)
[2018-02-16] MEDS ORDERED: LABETALOL 5MG/ML, 20ML IVPush PRN (02:30)
[2018-02-16] MEDS: NICOTINE 14MG/24 HR PATCH.TD24 TD SCH (03:10)
[2018-02-16] MEDS: GABAPENTIN 100 MG CAPSULE PO SCH ×3 (03:10→16:28)
[2018-02-16 03:31] VITALS: BP 113/70
[2018-02-16] MEDS: METHOCARBAMOL 500 MG TABLET PO PRN (04:10)
[2018-02-16 05:52] LABS: CULTURE INDICATED? YES; MICROSCOPIC INDICATED
[2018-02-16] MEDS: INSULIN LISPRO 100 UNITS/ML, PEN SQ-INSULIN SCH ×4 (07:00→20:28)
[2018-02-16] MEDS: VANCOMYCIN PMX 1GM/200ML 200 ML IV SCH (08:48)
[2018-02-16] MEDS: PANTOPRAZOLE 40 MG IV IVPush SCH (08:48)
[2018-02-16] MEDS: SODIUM CHLORIDE FLUSH 10ML SYR IVF SCH ×2 (08:54→21:00)
[2018-02-16 08:56] VITALS: BP 138/82
[2018-02-16 09:05] LABS: ANION GAP 9 mmol/L (5-15); CALCIUM 7.9 mg/dL (8.5-10.1); CHLORIDE 101 mmol/L (98-107); CREATININE 1.22 mg/dL (0.7-1.3)
[2018-02-16 09:10] LABS: BASOPHILS # (AUTO) 0.04 x10^3/uL (0-0.1); BASOPHILS % (AUTO) 0 % (0-1); EOSINOPHILS # (AUTO) 0.14 x10^3/uL (0-0.4); EOSINOPHILS % (AUTO) 1 % (1-7); LYMPHOCYTES % (AUTO) 25 % (22-44); MD NO; MEAN CORPUSCULAR HEMOGLOBIN 31.7 pg (27.5-34.5); MEAN CORPUSCULAR HGB CONC 34.2 g/dL (33.2-36.2); MEAN CORPUSCULAR VOLUME 92.6 fL (81-97); MEAN PLATELET VOLUME 8.2 fL (7.4-10.4); MONOCYTES # (AUTO) 0.76 x10^3/uL (0.2-0.8); MONOCYTES % (AUTO) 7 % (2-9); NEUTROPHILS # (AUTO) 7.75 x10^3/uL (1.8-6.8); NEUTROPHILS % (AUTO) 67 % (42-75); PLATELET COUNT 383 x10^3/uL (130-400); RED BLOOD COUNT 3.17 x10^6/uL (4.38-5.82); RED CELL DISTRIBUTION WIDTH 13.6 % (9.4-14.8)
[2018-02-16] MEDS: ACETAMINOPHEN 325 MG TABLET PO PRN ×2 (11:24→21:25)
[2018-02-16] MEDS ORDERED: LOPERAMIDE 2 MG CAPSULE PO ONE (12:30)
[2018-02-16 15:00] VITALS: BP 120/78
[2018-02-16 16:19] LABS: AMPHETAMINE SCREEN, URINE Positive (Negative); BARBITURATE SCREEN, URINE Negative (Negative); BENZODIAZEPINE SCREEN, URINE Negative (Negative); CANNABINOID SCREEN, URINE Positive (Negative); COCAINE SCREEN, URINE Negative (Negative); METHADONE SCREEN, URINE Negative (Negative); OPIATE SCREEN, URINE Positive (Negative)
[2018-02-16 19:19] VITALS: BP 138/77
[2018-02-16] MEDS ORDERED: INSULIN LISPRO 100 UNITS/ML, PEN SQ-INSULIN ONE (21:00)
[2018-02-16] MEDS: GABAPENTIN 400 MG CAPSULE PO SCH (21:24)
[2018-02-16] MEDS: LOPERAMIDE 2 MG CAPSULE PO PRN (21:26)
[2018-02-17 01:53] VITALS: BP 128/67
[2018-02-17] MEDS: METHOCARBAMOL 500 MG TABLET PO PRN ×2 (02:18→14:00)
[2018-02-17] MEDS: ACETAMINOPHEN 325 MG TABLET PO PRN ×3 (02:19→21:52)
[2018-02-17] MEDS: NICOTINE 14MG/24 HR PATCH.TD24 TD SCH (03:25)
[2018-02-17 05:35] LABS: BASOPHILS # (AUTO) 0.04 x10^3/uL (0-0.1); BASOPHILS % (AUTO) 0 % (0-1); EOSINOPHILS # (AUTO) 0.12 x10^3/uL (0-0.4); EOSINOPHILS % (AUTO) 1 % (1-7); LYMPHOCYTES # (AUTO) 1.28 x10^3/uL (1-3.4); LYMPHOCYTES % (AUTO) 11 % (22-44); MD NO; MEAN CORPUSCULAR HEMOGLOBIN 32.1 pg (27.5-34.5); MEAN CORPUSCULAR HGB CONC 34.1 g/dL (33.2-36.2); MEAN CORPUSCULAR VOLUME 94.3 fL (81-97); MEAN PLATELET VOLUME 8.6 fL (7.4-10.4); MONOCYTES # (AUTO) 0.56 x10^3/uL (0.2-0.8); MONOCYTES % (AUTO) 5 % (2-9); NEUTROPHILS # (AUTO) 9.29 x10^3/uL (1.8-6.8); NEUTROPHILS % (AUTO) 82 % (42-75); PLATELET COUNT 308 x10^3/uL (130-400); RED BLOOD COUNT 3.15 x10^6/uL (4.38-5.82); RED CELL DISTRIBUTION WIDTH 13.5 % (9.4-14.8)
[2018-02-17 05:44] LABS: CHLORIDE 105 mmol/L (98-107)
[2018-02-17 05:51] LABS: ALANINE AMINOTRANSFERASE 18 U/L (12-78); ALBUMIN 2.9 g/dL (3.4-5.0); ALKALINE PHOSPHATASE 146 U/L (45-117); ANION GAP 10 mmol/L (5-15); BILIRUBIN,TOTAL 0.3 mg/dL (0.2-1.0); CALCIUM 8.1 mg/dL (8.5-10.1); CREATININE 1.06 mg/dL (0.7-1.3); TOTAL PROTEIN 7.7 g/dL (6.4-8.2)
[2018-02-17 06:45] VITALS: BP 127/86
[2018-02-17] MEDS: LOPERAMIDE 2 MG CAPSULE PO PRN (07:39)
[2018-02-17] MEDS: GABAPENTIN 400 MG CAPSULE PO SCH ×3 (07:39→21:49)
[2018-02-17] MEDS: PANTOPRAZOLE 40 MG IV IVPush SCH (07:39)
[2018-02-17] MEDS: SODIUM CHLORIDE FLUSH 10ML SYR IVF SCH ×2 (07:40→21:00)
[2018-02-17] MEDS: INSULIN LISPRO 100 UNITS/ML, PEN SQ-INSULIN SCH ×4 (07:44→21:52)
[2018-02-17] MEDS: VANCOMYCIN PMX 1GM/200ML 200 ML IV SCH (08:59)
[2018-02-17] MEDS: FLUCONAZOLE 200 MG/100 ML 100 ML IV SCH (12:04)
[2018-02-17 15:05] VITALS: BP 138/85
[2018-02-17 18:55] VITALS: BP 139/79
[2018-02-18] MEDS: METHOCARBAMOL 500 MG TABLET PO PRN ×2 (00:42→15:52)
[2018-02-18] MEDS: LOPERAMIDE 2 MG CAPSULE PO PRN ×4 (01:32→20:49)
[2018-02-18 02:32] VITALS: BP_SYST 135; BP_SYST 195; BP_DIAS 86
[2018-02-18] MEDS: NICOTINE 14MG/24 HR PATCH.TD24 TD SCH (03:11)
[2018-02-18 06:17] LABS: MEAN CORPUSCULAR HEMOGLOBIN 31.5 pg (27.5-34.5); MEAN CORPUSCULAR HGB CONC 33.5 g/dL (33.2-36.2); MEAN CORPUSCULAR VOLUME 93.9 fL (81-97); MEAN PLATELET VOLUME 9.6 fL (7.4-10.4); PLATELET COUNT 331 x10^3/uL (130-400); RED BLOOD COUNT 3.56 x10^6/uL (4.38-5.82)
[2018-02-18] MEDS: ACETAMINOPHEN 325 MG TABLET PO PRN ×3 (06:28→20:49)
[2018-02-18 06:29] LABS: ANION GAP 8 mmol/L (5-15); CALCIUM 8.2 mg/dL (8.5-10.1); CHLORIDE 103 mmol/L (98-107); CREATININE 1.25 mg/dL (0.7-1.3)
[2018-02-18 06:43] LABS: BASOPHILS # (AUTO) 0.03 x10^3/uL (0-0.1); BASOPHILS % (AUTO) 0 % (0-1); EOSINOPHILS % (AUTO) 1 % (1-7); LYMPHOCYTES # (AUTO) 1.63 x10^3/uL (1-3.4); LYMPHOCYTES % (AUTO) 8 % (22-44); MD SCAN; MONOCYTES # (AUTO) 0.55 x10^3/uL (0.2-0.8); MONOCYTES % (AUTO) 3 % (2-9); NEUTROPHILS % (AUTO) 88 % (42-75)
[2018-02-18] MEDS: GABAPENTIN 400 MG CAPSULE PO SCH ×3 (08:17→20:49)
[2018-02-18] MEDS: PANTOPRAZOLE 40 MG IV IVPush SCH (08:18)
[2018-02-18 08:45] VITALS: BP 137/85
[2018-02-18 09:10] VITALS: BP 137/80
[2018-02-18] MEDS: VANCOMYCIN PMX 1GM/200ML 200 ML IV SCH (09:29)
[2018-02-18] MEDS: SODIUM CHLORIDE FLUSH 10ML SYR IVF SCH ×2 (09:29→20:51)
[2018-02-18] MEDS: INSULIN LISPRO 100 UNITS/ML, PEN SQ-INSULIN SCH ×4 (09:31→20:50)
[2018-02-18] MEDS: FLUCONAZOLE 200 MG/100 ML 100 ML IV SCH (11:31)
[2018-02-18 14:03] VITALS: BP 116/76
[2018-02-18] MEDS ORDERED: PHARMACOKINETIC MONITORING MC PRN (17:00)
[2018-02-18] MEDS ORDERED: PHARMACOKINETIC CONSULTATION MC ONE (17:00)
[2018-02-18] MEDS ORDERED: VANCOMYCIN PER PHARMACY MC PRN (17:00)
[2018-02-18 19:19] VITALS: BP 114/71
[2018-02-19] MEDS: METHOCARBAMOL 500 MG TABLET PO PRN (00:28)
[2018-02-19 01:30] VITALS: BP 115/75
[2018-02-19] MEDS: NICOTINE 14MG/24 HR PATCH.TD24 TD SCH (02:52)
[2018-02-19 06:20] LABS: MEAN CORPUSCULAR HEMOGLOBIN 31.4 pg (27.5-34.5); MEAN CORPUSCULAR HGB CONC 33.3 g/dL (33.2-36.2); MEAN CORPUSCULAR VOLUME 94.3 fL (81-97); MEAN PLATELET VOLUME 9.5 fL (7.4-10.4); PLATELET COUNT 314 x10^3/uL (130-400); RED BLOOD COUNT 3.26 x10^6/uL (4.38-5.82); RED CELL DISTRIBUTION WIDTH 14.1 % (9.4-14.8)
[2018-02-19 06:22] LABS: ALANINE AMINOTRANSFERASE 18 U/L (12-78); ALBUMIN 2.6 g/dL (3.4-5.0); ANION GAP 8 mmol/L (5-15); CALCIUM 8.4 mg/dL (8.5-10.1); CHLORIDE 106 mmol/L (98-107)
[2018-02-19 06:25] LABS: ALKALINE PHOSPHATASE 184 U/L (45-117); BILIRUBIN,TOTAL 0.2 mg/dL (0.2-1.0); CREATININE 1.16 mg/dL (0.7-1.3); TOTAL PROTEIN 7.4 g/dL (6.4-8.2)
[2018-02-19 06:46] LABS: BASOPHILS # (AUTO) 0.04 x10^3/uL (0-0.1); BASOPHILS % (AUTO) 0 % (0-1); EOSINOPHILS # (AUTO) 0.22 x10^3/uL (0-0.4); EOSINOPHILS % (AUTO) 2 % (1-7); LYMPHOCYTES # (AUTO) 2.04 x10^3/uL (1-3.4); LYMPHOCYTES % (AUTO) 18 % (22-44); MD SCAN; MONOCYTES # (AUTO) 0.75 x10^3/uL (0.2-0.8); MONOCYTES % (AUTO) 7 % (2-9); NEUTROPHILS # (AUTO) 8.52 x10^3/uL (1.8-6.8); NEUTROPHILS % (AUTO) 74 % (42-75)
[2018-02-19 07:03] VITALS: BP 133/85
[2018-02-19] MEDS: GABAPENTIN 400 MG CAPSULE PO SCH (08:50)
[2018-02-19] MEDS: PANTOPRAZOLE 40 MG IV IVPush SCH (08:50)
[2018-02-19] MEDS: SODIUM CHLORIDE FLUSH 10ML SYR IVF SCH (08:50)
[2018-02-19] MEDS: INSULIN LISPRO 100 UNITS/ML, PEN SQ-INSULIN SCH ×2 (08:50→11:23)
[2018-02-19] MEDS ORDERED: INSU100I11 SQ-INSULIN (10:59)
[2018-02-19] MEDS ORDERED: INSU100I13 SQ-INSULIN (10:59)
[2018-02-19] MEDS ORDERED: LOPE2CAP PO (10:59)
[2018-02-19] MEDS ORDERED: FLUC200T4 PO (10:59)
[2018-02-19] MEDS: FLUCONAZOLE 200 MG/100 ML 100 ML IV SCH (11:23)
== END 2018-02-19 14:45 | disposition home or self-care (01) | DRG 683 ==
LOC: ED 23:22 → EDIP 02-16 02:02 → 4WST 02-16 02:57 → DCLOUNGE 02-19 14:20
PROVIDERS: ADMIT Internal Medicine; ATTEND Internal Medicine
DX: N17.9 Acute kidney failure, unspecified (principal); B37.49 Other urogenital candidiasis; E87.1 Hypo-osmolality and hyponatremia; E87.2 Acidosis; N39.0 Urinary tract infection, site not specified; D64.9 Anemia, unspecified; E11.65 Type 2 diabetes mellitus with hyperglycemia; E16.0 Drug-induced hypoglycemia without coma; T38.3X5A Adverse effect of insulin and oral hypoglycemic [antidiabetic] drugs, initial encounter; Y92.89 Other specified places as the place of occurrence of the external cause; E86.0 Dehydration; F15.10 Other stimulant abuse, uncomplicated; R62.7 Adult failure to thrive; F17.210 Nicotine dependence, cigarettes, uncomplicated; G89.29 Other chronic pain; I48.91 Unspecified atrial fibrillation; N31.9 Neuromuscular dysfunction of bladder, unspecified; J44.9 Chronic obstructive pulmonary disease, unspecified; Z76.5 Malingerer [conscious simulation]; F11.10 Opioid abuse, uncomplicated; F12.10 Cannabis abuse, uncomplicated; I95.9 Hypotension, unspecified; F10.20 Alcohol dependence, uncomplicated
CPT/HCPCS: 36415; 71045; 80048; 80053; 80307; 81001; 82947; 82962; 83605; 83735; 84145; 84443; 84484; 85025; 87040; 87077; 87086; 87106; 87184; 87324; 93005; 96361; 96374; G0378; J3370; C9113; J1450; J1815; J7030